=== PATIENT | female | born 1945 | race Caucasian/White ===

== ENCOUNTER 2023-01-08 09:23 | Inpatient (IN) | payer OTHER ==
[~2023-01-08] VITALS: Ht 162.6 cm; Wt 71.7 kg
[2023-01-08 09:23] VITALS: BP_SYST 99; PULSE 89; RESP 18; TEMP 97; O2SAT 97
[2023-01-08] MEDS ORDERED: NACL 0.9% 1,000 ML IV ONE ×2 (09:45→11:30)
[2023-01-08 10:14] LABS: EOSINOPHILS # (AUTO) 0.6 K/uL (0.0-0.4); HEMOGLOBIN 9.1 g/dL (12.0-16.0); LYMPHOCYTES # (AUTO) 0.7 K/uL (1.0-5.5); LYMPHOCYTES % (AUTO) 5.1 % (20.5-51.5); MEAN CORPUSCULAR HEMOGLOBIN 33 pg (27-31); MEAN CORPUSCULAR HGB CONC 33 % (32-36); MEAN CORPUSCULAR VOLUME 101 fL (79.0-98.0); MONOCYTES # (AUTO) 2.7 K/uL (0.0-1.0); MONOCYTES % (AUTO) 19.5 % (1.7-9.3); NEUTROPHILS # (AUTO) 9.9 K/uL (1.8-7.7); NEUTROPHILS % (AUTO) 71.4 % (40.0-70.0); PLATELET COUNT (AUTO) 448 K/uL (130-430); RED BLOOD CELL COUNT(AUTO) 2.77 MIL/uL (4.2-6.2); RED CELL DISTRIBUTION WIDTH 17.4 % (9.0-15.0); WHITE BLOOD COUNT (AUTO) 13.9 K/uL (4.8-10.8)
[2023-01-08 10:24] LABS: ANION GAP 12 (5-15); CALCIUM 9.1 mg/dL (8.4-11.0); CARBON DIOXIDE 24 mmol/L (23-29); CHLORIDE 101 mmol/L (98-107); CREATININE 1.31 mg/dL (0.55-1.30); GLUCOSE 199 mg/dL (74-106); POTASSIUM 3.6 mmol/L (3.5-5.1); SODIUM SERUM 137 mmol/L (136-145); UREA NITROGEN, BLOOD 16 mg/dL (8-21)
[2023-01-08 10:30] LABS: ALANINE AMINOTRANSFERASE 34 U/L (12-78); ASPARTATE AMINOTRANSFERASE 33 U/L (10-37); CREATINE KINASE, TOTAL 24 U/L (26-192); LIPASE 36 U/L (16-77); PHOSPHORUS 2.7 mg/dL (2.7-4.5); TOTAL BILIRUBIN 0.4 mg/dL (0.0-1.0); TOTAL PROTEIN, SERUM 6.2 g/dL (6.4-8.3)
[2023-01-08] MEDS ORDERED: PIPERACILLIN/TAZO 3.375 GM in NS 50 ML IV ONE (11:30)
[2023-01-08] MEDS ORDERED: VANCOMYCIN HCL 1,000 MG in NS 250 ML IV ONE (11:30)
[2023-01-08] MEDS ORDERED: LOVA20TA2 PO (12:03)
[2023-01-08] MEDS ORDERED: LOSA25TA18 PO (12:03)
[2023-01-08] MEDS ORDERED: OMEP40CA20 PO (12:03)
[2023-01-08] MEDS ORDERED: LEVO88TA5 PO (12:03)
[2023-01-08] MEDS ORDERED: FAMO40TA7 PO (12:03)
[2023-01-08] MEDS ORDERED: HYDR-3927 PO (12:03)
[2023-01-08] MEDS ORDERED: ACYC400T19 PO (12:03)
[2023-01-08] MEDS ORDERED: VANCOMYCIN HCL 1000 MG/VIAL IV ONE (12:21)
[2023-01-08] MEDS ORDERED: PIPERACILLIN/TAZOBACTAM 3.375 GM/VIAL (ZOSYN) IV ONE (12:21)
[2023-01-08] MEDS ORDERED: METHYLPREDNISOLONE SOD SUCC 40 MG/ML VIAL IVP ONE (13:30)
[2023-01-08] MEDS ORDERED: FLUCONAZOLE 200 mg/ NS 100 ML IV ONE (13:30)
[2023-01-08] MEDS ORDERED: OSELTAMIVIR PHOSPHATE 75 MG CAPSULE PO ONE (13:30)
[2023-01-08 15:50] LABS: BILIRUBIN,URINE NEGATIVE (NEGATIVE); BLOOD, URINE NEGATIVE (NEGATIVE); CLARITY/URINE CLEAR (CLEAR); COLOR,URINE YELLOW (YELLOW); GLUCOSE,URINE NEGATIVE (NEGATIVE); KETONES,URINE NEGATIVE (NEGATIVE); LEUKOCYTE ESTERASE ,URINE NEGATIVE (NEGATIVE); NITRITE, URINE NEGATIVE (NEGATIVE); PROTEIN URINE NEGATIVE (NEGATIVE); UROBILINOGEN,URINE 0.2 (0.2-1.0)
[2023-01-08 19:48] VITALS: BP_SYST 119; PULSE 76; RESP 18; TEMP 97.8; O2SAT 99
[2023-01-08] MEDS ORDERED: cefTRIAXone 1 GM in D5W 50 ML IV SCH (20:00)
[2023-01-08 20:10] LABS: INFLUENZA TYPE A Negative (NEGATIVE); INFLUENZA TYPE B NEGATIVE (NEGATIVE)
[2023-01-08] MEDS ORDERED: *LOVENOX0.75MG/KG Q12H/PHARMACY XX ONE (20:15)
[2023-01-08] MEDS ORDERED: NALOXONE HCL 0.4 MG/ML AMP (NARCAN) IVP PRN (20:15)
[2023-01-08] MEDS ORDERED: OMEPRAZOLE Non-Formulary 20 MG CAPSULE.DR PO PRN (20:15)
[2023-01-08] MEDS ORDERED: PANTOPRAZOLE SODIUM 40 MG TAB PO PRN (20:30)
[2023-01-08] MEDS ORDERED: POTASSIUM CHLORIDE 20 MEQ TAB.PRT.SR PO ONE (20:30)
[2023-01-08 21:04] LABS: BLOOD GAS PCO2 25.1 mmHg (35.0-45.0); BLOOD GAS PH 7.463 (7.350-7.450); BLOOD GAS PO2 104.2 mmHg (75.0-100.0)
[2023-01-08 21:05] LABS: BLOOD GAS BASE EXCESS -4.3 mmol/L (-3.0-3.0); BLOOD GAS HCO3 17.6 mmol/L (21.0-27.0)
[2023-01-08 21:06] LABS: ABG O2 SAT% ESTIMATE 98.1 % (94.0-100.0); ALLEN'S TEST YES (P)
[2023-01-08] MEDS: TEMAZEPAM 15 MG CAPSULE PO SCH (22:36)
[2023-01-08] MEDS: ACYCLOVIR 400 MG TABLET PO SCH (22:36)
[2023-01-08] MEDS: HYDROcodone/ACETAMIN 5-325 MG TAB (NORCO/ VICODIN) PO PRN (22:36)
[2023-01-08] MEDS: METHYLPREDNISOLONE SOD SUCC 40 MG/ML VIAL IVP SCH (22:37)
[2023-01-08] MEDS: ENOXAPARIN SODIUM 60 MG/0.6 ML SYRINGE SUBCUT SCH (22:37)
[2023-01-09] VITALS (7 sets, daily range): BP systolic 91–137; PULSE 64–87; RESP 14–18; TEMP 97.5–98.6; O2SAT 96–100
[2023-01-09] MEDS: FLUCONAZOLE 200 mg/ NS 100 ML IV SCH ×2 (00:17→09:13)
[2023-01-09] MEDS: PIPERACILLIN/TAZO 3.375/DEX-IS 50 ML IV SCH ×5 (00:19→23:56)
[2023-01-09 05:34] LABS: BASOPHILS % (AUTO) 0.1 % (0.0-2.0); HEMATOCRIT 22.7 % (36-48); HEMOGLOBIN 7.4 g/dL (12.0-16.0); LYMPHOCYTES % (AUTO) 7.9 % (20.5-51.5); MEAN CORPUSCULAR HEMOGLOBIN 33 pg (27-31); MEAN CORPUSCULAR HGB CONC 33 % (32-36); MEAN CORPUSCULAR VOLUME 100 fL (79.0-98.0); MONOCYTES # (AUTO) 0.2 K/uL (0.0-1.0); MONOCYTES % (AUTO) 1.2 % (1.7-9.3); NEUTROPHILS # (AUTO) 11.8 K/uL (1.8-7.7); NEUTROPHILS % (AUTO) 90.8 % (40.0-70.0); PLATELET COUNT (AUTO) 367 K/uL (130-430); RED BLOOD CELL COUNT(AUTO) 2.27 MIL/uL (4.2-6.2); RED CELL DISTRIBUTION WIDTH 17.6 % (9.0-15.0)
[2023-01-09 05:37] LABS: ANION GAP 11 (5-15); CALCIUM 8.2 mg/dL (8.4-11.0); CARBON DIOXIDE 23 mmol/L (23-29); CHLORIDE 105 mmol/L (98-107); CREATININE 1.03 mg/dL (0.55-1.30); GLUCOSE 158 mg/dL (74-106); POTASSIUM 4.1 mmol/L (3.5-5.1); SODIUM SERUM 139 mmol/L (136-145); UREA NITROGEN, BLOOD 14 mg/dL (8-21)
[2023-01-09] MEDS: LEVOTHYROXINE SODIUM 0.088 MG TABLET PO SCH (06:39)
[2023-01-09] MEDS ORDERED: LOVASTATIN 20 MG TABLET PO SCH (09:00)
[2023-01-09] MEDS: ACYCLOVIR 400 MG TABLET PO SCH ×2 (09:07→20:34)
[2023-01-09] MEDS: ENOXAPARIN SODIUM 60 MG/0.6 ML SYRINGE SUBCUT SCH ×2 (09:07→20:34)
[2023-01-09] MEDS: ATORVASTATIN 10 MG TABLET PO SCH (09:08)
[2023-01-09] MEDS: METHYLPREDNISOLONE SOD SUCC 40 MG/ML VIAL IVP SCH ×2 (09:08→20:33)
[2023-01-09] MEDS: FAMOTIDINE 20 MG TABLET PO SCH (09:09)
[2023-01-09] MEDS: OSELTAMIVIR PHOSPHATE 75 MG CAPSULE PO SCH (09:09)
[2023-01-09] MEDS: LOSARTAN POTASSIUM 25 MG TABLET PO SCH (09:10)
[2023-01-09] MEDS ORDERED: IPRATROPIUM/ALBUTEROL SULFATE 3 ML AMPUL.NEB (DUONEB) INH PRN (11:45)
[2023-01-09 11:51] LABS: TOTAL IRON BIND. CAPACITY 219 ug/dL (250-450)
[2023-01-09] MEDS: TEMAZEPAM 15 MG CAPSULE PO SCH (20:34)
[2023-01-09] MEDS: HYDROcodone/ACETAMIN 5-325 MG TAB (NORCO/ VICODIN) PO PRN (20:38)
[2023-01-09 20:54] LABS: HEMATOCRIT 24.3 % (36-48); HEMOGLOBIN 7.8 g/dL (12.0-16.0)
[2023-01-10 01:29] VITALS: BP_SYST 96; PULSE 79; RESP 18; TEMP 97.9
[2023-01-10] MEDS: PIPERACILLIN/TAZO 3.375/DEX-IS 50 ML IV SCH ×3 (05:21→18:35)
[2023-01-10] MEDS: LEVOTHYROXINE SODIUM 0.088 MG TABLET PO SCH (06:20)
[2023-01-10 06:58] LABS: ANION GAP 10 (5-15); CALCIUM 8.9 mg/dL (8.4-11.0); CARBON DIOXIDE 23 mmol/L (23-29); CHLORIDE 103 mmol/L (98-107); CREATININE 1.08 mg/dL (0.55-1.30); GLUCOSE 190 mg/dL (74-106); POTASSIUM 3.9 mmol/L (3.5-5.1); SODIUM SERUM 136 mmol/L (136-145); UREA NITROGEN, BLOOD 17 mg/dL (8-21)
[2023-01-10 07:24] LABS: BASOPHILS % (AUTO) 0.1 % (0.0-2.0); HEMATOCRIT 22.9 % (36-48); LYMPHOCYTES # (AUTO) 1.8 K/uL (1.0-5.5); LYMPHOCYTES % (AUTO) 9.5 % (20.5-51.5); MEAN CORPUSCULAR HEMOGLOBIN 33 pg (27-31); MEAN CORPUSCULAR HGB CONC 32 % (32-36); MEAN CORPUSCULAR VOLUME 103 fL (79.0-98.0); MONOCYTES # (AUTO) 0.4 K/uL (0.0-1.0); MONOCYTES % (AUTO) 2.2 % (1.7-9.3); NEUTROPHILS # (AUTO) 16.4 K/uL (1.8-7.7); NEUTROPHILS % (AUTO) 88.2 % (40.0-70.0); PLATELET COUNT (AUTO) 355 K/uL (130-430); RED BLOOD CELL COUNT(AUTO) 2.22 MIL/uL (4.2-6.2); RED CELL DISTRIBUTION WIDTH 17.9 % (9.0-15.0); WHITE BLOOD COUNT (AUTO) 18.6 K/uL (4.8-10.8)
[2023-01-10 07:47] LABS: HEMOGLOBIN 7.3 g/dL (12.0-16.0)
[2023-01-10 09:04] VITALS: BP_SYST 102; PULSE 68; RESP 18; TEMP 97.1; O2SAT 98
[2023-01-10] MEDS: METHYLPREDNISOLONE SOD SUCC 40 MG/ML VIAL IVP SCH ×2 (10:14→20:49)
[2023-01-10 11:26] VITALS: BP_SYST 116; PULSE 70; RESP 16; TEMP 97; O2SAT 94
[2023-01-10 11:51] LABS: BASOPHILS # (AUTO) 0.1 K/uL (0.0-0.2); BASOPHILS % (AUTO) 0.4 % (0.0-2.0); EOSINOPHILS # (AUTO) 0.1 K/uL (0.0-0.4); EOSINOPHILS % (AUTO) 0.6 % (0.0-4.0); HEMATOCRIT 24.3 % (36-48); HEMOGLOBIN 7.9 g/dL (12.0-16.0); LYMPHOCYTES # (AUTO) 1.4 K/uL (1.0-5.5); LYMPHOCYTES % (AUTO) 6.8 % (20.5-51.5); MEAN CORPUSCULAR HEMOGLOBIN 33 pg (27-31); MEAN CORPUSCULAR HGB CONC 33 % (32-36); MEAN CORPUSCULAR VOLUME 102 fL (79.0-98.0); MONOCYTES # (AUTO) 0.6 K/uL (0.0-1.0); MONOCYTES % (AUTO) 2.8 % (1.7-9.3); NEUTROPHILS % (AUTO) 89.4 % (40.0-70.0); PLATELET COUNT (AUTO) 398 K/uL (130-430); RED BLOOD CELL COUNT(AUTO) 2.39 MIL/uL (4.2-6.2); RED CELL DISTRIBUTION WIDTH 18.6 % (9.0-15.0); WHITE BLOOD COUNT (AUTO) 20.1 K/uL (4.8-10.8)
[2023-01-10] MEDS: FLUCONAZOLE 200 mg/ NS 100 ML IV SCH (12:02)
[2023-01-10] MEDS: OSELTAMIVIR PHOSPHATE 75 MG CAPSULE PO SCH (13:06)
[2023-01-10] MEDS: ATORVASTATIN 10 MG TABLET PO SCH (13:07)
[2023-01-10] MEDS: FAMOTIDINE 20 MG TABLET PO SCH (13:09)
[2023-01-10] MEDS: ENOXAPARIN SODIUM 60 MG/0.6 ML SYRINGE SUBCUT SCH ×2 (13:10→20:52)
[2023-01-10] MEDS: ACYCLOVIR 400 MG TABLET PO SCH ×2 (13:10→20:48)
[2023-01-10] MEDS ORDERED: iohexoL 350 mgI/mL, 100 ML INFUS..BTL IV ONE (14:48)
[2023-01-10 15:23] VITALS: BP_SYST 109; PULSE 79; RESP 16; TEMP 98.4; O2SAT 98
[2023-01-10] MEDS: LOSARTAN POTASSIUM 25 MG TABLET PO SCH (18:35)
[2023-01-10 20:00] VITALS: BP_SYST 115; PULSE 70; RESP 16; TEMP 97.4; O2SAT 98
[2023-01-10] MEDS: TEMAZEPAM 15 MG CAPSULE PO SCH (20:48)
[2023-01-10 23:07] VITALS: O2SAT 95
[2023-01-11] VITALS (7 sets, daily range): BP systolic 111–126; PULSE 58–92; RESP 16–20; TEMP 97–98.2; O2SAT 93–99
[2023-01-11] MEDS: PIPERACILLIN/TAZO 3.375/DEX-IS 50 ML IV SCH ×5 (01:11→23:38)
[2023-01-11] MEDS: LEVOTHYROXINE SODIUM 0.088 MG TABLET PO SCH (06:09)
[2023-01-11 06:44] LABS: ANION GAP 12 (5-15); CALCIUM 8.8 mg/dL (8.4-11.0); CARBON DIOXIDE 22 mmol/L (23-29); CHLORIDE 100 mmol/L (98-107); CREATININE 1.18 mg/dL (0.55-1.30); GLUCOSE 203 mg/dL (74-106); POTASSIUM 3.9 mmol/L (3.5-5.1); SODIUM SERUM 134 mmol/L (136-145); UREA NITROGEN, BLOOD 20 mg/dL (8-21)
[2023-01-11 08:32] LABS: BASOPHILS # (AUTO) 0.1 K/uL (0.0-0.2); BASOPHILS % (AUTO) 0.5 % (0.0-2.0); HEMATOCRIT 24.3 % (36-48); LYMPHOCYTES # (AUTO) 1.4 K/uL (1.0-5.5); MEAN CORPUSCULAR HEMOGLOBIN 33 pg (27-31); MEAN CORPUSCULAR HGB CONC 32 % (32-36); MEAN CORPUSCULAR VOLUME 103 fL (79.0-98.0); MONOCYTES # (AUTO) 0.3 K/uL (0.0-1.0); MONOCYTES % (AUTO) 1.7 % (1.7-9.3); NEUTROPHILS # (AUTO) 15.7 K/uL (1.8-7.7); NEUTROPHILS % (AUTO) 89.8 % (40.0-70.0); PLATELET COUNT (AUTO) 323 K/uL (130-430); RED BLOOD CELL COUNT(AUTO) 2.36 MIL/uL (4.2-6.2); RED CELL DISTRIBUTION WIDTH 18.9 % (9.0-15.0); WHITE BLOOD COUNT (AUTO) 17.5 K/uL (4.8-10.8)
[2023-01-11 08:34] LABS: ERYTHROCYTE SEDIMENTATION RATE 5 MM/HR (0-20); HEMOGLOBIN 7.8 g/dL (12.0-16.0)
[2023-01-11] MEDS: METHYLPREDNISOLONE SOD SUCC 40 MG/ML VIAL IVP SCH ×2 (10:00→21:52)
[2023-01-11] MEDS: ENOXAPARIN SODIUM 60 MG/0.6 ML SYRINGE SUBCUT SCH ×2 (10:01→21:01)
[2023-01-11] MEDS: OSELTAMIVIR PHOSPHATE 75 MG CAPSULE PO SCH (10:02)
[2023-01-11] MEDS: ATORVASTATIN 10 MG TABLET PO SCH (10:02)
[2023-01-11] MEDS: FAMOTIDINE 20 MG TABLET PO SCH (10:02)
[2023-01-11] MEDS: ACYCLOVIR 400 MG TABLET PO SCH ×2 (10:03→21:01)
[2023-01-11] MEDS: LOSARTAN POTASSIUM 25 MG TABLET PO SCH (10:03)
[2023-01-11] MEDS: FLUCONAZOLE 200 mg/ NS 100 ML IV SCH (10:04)
[2023-01-11] MEDS ORDERED: GASTROGRAFIN 120 ML ONE (10:22)
[2023-01-11] MEDS: TEMAZEPAM 15 MG CAPSULE PO SCH (21:01)
[2023-01-12 01:59] VITALS: BP_SYST 128; PULSE 60; RESP 19; TEMP 98.4; O2SAT 98
[2023-01-12 05:17] LABS: ERYTHROCYTE SEDIMENTATION RATE 4 MM/HR (0-20)
[2023-01-12 05:22] LABS: BASOPHILS # (AUTO) 0.1 K/uL (0.0-0.2); BASOPHILS % (AUTO) 0.4 % (0.0-2.0); EOSINOPHILS # (AUTO) 0.2 K/uL (0.0-0.4); EOSINOPHILS % (AUTO) 1.2 % (0.0-4.0); HEMATOCRIT 23.7 % (36-48); HEMOGLOBIN 7.8 g/dL (12.0-16.0); LYMPHOCYTES # (AUTO) 1.1 K/uL (1.0-5.5); LYMPHOCYTES % (AUTO) 7.8 % (20.5-51.5); MEAN CORPUSCULAR HEMOGLOBIN 34 pg (27-31); MEAN CORPUSCULAR HGB CONC 33 % (32-36); MEAN CORPUSCULAR VOLUME 102 fL (79.0-98.0); MONOCYTES # (AUTO) 0.3 K/uL (0.0-1.0); MONOCYTES % (AUTO) 2.2 % (1.7-9.3); NEUTROPHILS # (AUTO) 12.2 K/uL (1.8-7.7); NEUTROPHILS % (AUTO) 88.4 % (40.0-70.0); PLATELET COUNT (AUTO) 309 K/uL (130-430); RED BLOOD CELL COUNT(AUTO) 2.31 MIL/uL (4.2-6.2); WHITE BLOOD COUNT (AUTO) 13.8 K/uL (4.8-10.8)
[2023-01-12 05:47] LABS: ALANINE AMINOTRANSFERASE 42 U/L (12-78); ALBUMIN 2.7 g/dL (3.4-4.8); ANION GAP 12 (5-15); ASPARTATE AMINOTRANSFERASE 38 U/L (10-37); CALCIUM 8.9 mg/dL (8.4-11.0); CARBON DIOXIDE 25 mmol/L (23-29); CHLORIDE 99 mmol/L (98-107); GLUCOSE 194 mg/dL (74-106); POTASSIUM 3.1 mmol/L (3.5-5.1); SODIUM SERUM 136 mmol/L (136-145); TOTAL BILIRUBIN 0.4 mg/dL (0.0-1.0); TOTAL PROTEIN, SERUM 5.4 g/dL (6.4-8.3); UREA NITROGEN, BLOOD 24 mg/dL (8-21)
[2023-01-12] MEDS: PIPERACILLIN/TAZO 3.375/DEX-IS 50 ML IV SCH ×4 (06:03→23:45)
[2023-01-12] MEDS: LEVOTHYROXINE SODIUM 0.088 MG TABLET PO SCH (06:04)
[2023-01-12 08:00] VITALS: BP_SYST 122; PULSE 57; RESP 16; TEMP 98.2; O2SAT 98
[2023-01-12 08:01] VITALS: BP_SYST 128; PULSE 60; O2SAT 98
[2023-01-12 08:07] LABS: FOLATE (FOLIC ACID) 6.6 ng/mL (>3.0)
[2023-01-12] MEDS: METHYLPREDNISOLONE SOD SUCC 40 MG/ML VIAL IVP SCH ×2 (08:39→20:38)
[2023-01-12] MEDS: FLUCONAZOLE 200 mg/ NS 100 ML IV SCH (08:39)
[2023-01-12] MEDS ORDERED: POTASSIUM CHLORIDE 20 MEQ TAB.PRT.SR PO ONE (09:00)
[2023-01-12] MEDS: ACYCLOVIR 400 MG TABLET PO SCH ×2 (09:04→20:38)
[2023-01-12] MEDS: FAMOTIDINE 20 MG TABLET PO SCH (09:04)
[2023-01-12] MEDS: ENOXAPARIN SODIUM 60 MG/0.6 ML SYRINGE SUBCUT SCH ×2 (09:05→20:35)
[2023-01-12] MEDS: ATORVASTATIN 10 MG TABLET PO SCH (09:05)
[2023-01-12] MEDS: OSELTAMIVIR PHOSPHATE 75 MG CAPSULE PO SCH (09:15)
[2023-01-12] MEDS: LOSARTAN POTASSIUM 25 MG TABLET PO SCH (09:16)
[2023-01-12 12:00] VITALS: BP_SYST 100; PULSE 86; RESP 20; TEMP 98.6; O2SAT 100
[2023-01-12 16:00] VITALS: BP_SYST 110; PULSE 98; RESP 20; TEMP 98.2; O2SAT 97
[2023-01-12] MEDS ORDERED: BISACODYL 5 MG TABLET.DR (DULCOLAX) PO ONE (17:00)
[2023-01-12] MEDS ORDERED: GOLYTELY / COLYTE SOLUTION 4 LITERS PO ONE (18:00)
[2023-01-12 20:00] VITALS: BP_SYST 127; PULSE 78; RESP 18; TEMP 97.7; O2SAT 18; O2SAT 99
[2023-01-12] MEDS: TEMAZEPAM 15 MG CAPSULE PO SCH (20:38)
[2023-01-12] MEDS: 0.45% NACL 1,000 ML IV SCH (23:43)
[2023-01-13] VITALS: BP_SYST 135; PULSE 72; RESP 16; TEMP 97.8; O2SAT 99
[2023-01-13 05:08] LABS: BASOPHILS # (AUTO) 0.1 K/uL (0.0-0.2); BASOPHILS % (AUTO) 0.9 % (0.0-2.0); HEMATOCRIT 23.3 % (36-48); HEMOGLOBIN 7.6 g/dL (12.0-16.0); LYMPHOCYTES # (AUTO) 0.9 K/uL (1.0-5.5); LYMPHOCYTES % (AUTO) 7.6 % (20.5-51.5); MEAN CORPUSCULAR HEMOGLOBIN 33 pg (27-31); MEAN CORPUSCULAR HGB CONC 33 % (32-36); MEAN CORPUSCULAR VOLUME 102 fL (79.0-98.0); MONOCYTES # (AUTO) 0.3 K/uL (0.0-1.0); MONOCYTES % (AUTO) 2.4 % (1.7-9.3); NEUTROPHILS # (AUTO) 10.8 K/uL (1.8-7.7); NEUTROPHILS % (AUTO) 89.1 % (40.0-70.0); PLATELET COUNT (AUTO) 274 K/uL (130-430); RED BLOOD CELL COUNT(AUTO) 2.28 MIL/uL (4.2-6.2); WHITE BLOOD COUNT (AUTO) 12.1 K/uL (4.8-10.8)
[2023-01-13 05:18] LABS: PROTHROMBIN TIME 10.2 SECS (9.5-12.5)
[2023-01-13 05:21] LABS: ANION GAP 11 (5-15); CALCIUM 8.8 mg/dL (8.4-11.0); CARBON DIOXIDE 28 mmol/L (23-29); CHLORIDE 100 mmol/L (98-107); CREATININE 1.17 mg/dL (0.55-1.30); GLUCOSE 219 mg/dL (74-106); SODIUM SERUM 139 mmol/L (136-145); UREA NITROGEN, BLOOD 20 mg/dL (8-21)
[2023-01-13 05:54] LABS: POTASSIUM 2.8 mmol/L (3.5-5.1)
[2023-01-13] MEDS: LEVOTHYROXINE SODIUM 0.088 MG TABLET PO SCH (06:48)
[2023-01-13] MEDS: PIPERACILLIN/TAZO 3.375/DEX-IS 50 ML IV SCH ×3 (06:49→20:04)
[2023-01-13] MEDS ORDERED: SIMETHICONE 40 MG/0.6 ML ML ONE (07:03)
[2023-01-13] MEDS ORDERED: fentaNYL CITRATE/PF 100 MCG/2 ML AMP ONE (07:06)
[2023-01-13] MEDS ORDERED: MIDAZOLAM HCL 5 MG/5 ML VIAL ONE (07:06)
[2023-01-13] MEDS ORDERED: POTASSIUM CHLORIDE 40 MEQ in NS 250 ML IV ONE (07:30)
[2023-01-13] MEDS ORDERED: EPINEPHrine JECT 0.1 MG/ML SYR ONE (07:55)
[2023-01-13 08:06] LABS: FOLATE (FOLIC ACID) 5.3 ng/mL (>3.0)
[2023-01-13 09:30] VITALS: O2SAT 96
[2023-01-13 11:30] VITALS: BP_SYST 131; PULSE 69; RESP 15; TEMP 96.3; O2SAT 93
[2023-01-13] MEDS: METHYLPREDNISOLONE SOD SUCC 40 MG/ML VIAL IVP SCH ×2 (12:38→20:37)
[2023-01-13] MEDS: ENOXAPARIN SODIUM 60 MG/0.6 ML SYRINGE SUBCUT SCH ×2 (12:38→20:33)
[2023-01-13] MEDS: FAMOTIDINE 20 MG TABLET PO SCH (12:39)
[2023-01-13] MEDS: ATORVASTATIN 10 MG TABLET PO SCH (12:39)
[2023-01-13] MEDS: OSELTAMIVIR PHOSPHATE 75 MG CAPSULE PO SCH (12:39)
[2023-01-13] MEDS: ACYCLOVIR 400 MG TABLET PO SCH ×2 (12:39→20:37)
[2023-01-13] MEDS: LOSARTAN POTASSIUM 25 MG TABLET PO SCH (12:41)
[2023-01-13] MEDS: PANTOPRAZOLE SODIUM 40 MG in NS 50 ML IV SCH ×3 (12:53→20:39)
[2023-01-13] MEDS: FLUCONAZOLE 200 mg/ NS 100 ML IV SCH (12:54)
[2023-01-13 15:26] VITALS: BP_SYST 124; PULSE 73; RESP 16; TEMP 98.3; O2SAT 93
[2023-01-13] MEDS ORDERED: PANTOPRAZOLE SODIUM 40 MG/VIAL (PROTONIX) ONE (17:03)
[2023-01-13] MEDS: 0.45% NACL 1,000 ML IV SCH (18:00)
[2023-01-13 20:00] VITALS: BP_SYST 125; PULSE 64; RESP 18; TEMP 97.7; O2SAT 99
[2023-01-13] MEDS: TEMAZEPAM 15 MG CAPSULE PO SCH (20:33)
[2023-01-14 00:39] VITALS: BP_SYST 124; PULSE 61; RESP 15; TEMP 96.1; O2SAT 97
[2023-01-14] MEDS: PIPERACILLIN/TAZO 3.375/DEX-IS 50 ML IV SCH ×5 (01:04→23:18)
[2023-01-14] MEDS: PANTOPRAZOLE SODIUM 40 MG in NS 50 ML IV SCH ×5 (01:09→23:18)
[2023-01-14] MEDS: LEVOTHYROXINE SODIUM 0.088 MG TABLET PO SCH (06:22)
[2023-01-14 07:46] LABS: BASOPHILS % (AUTO) 0.4 % (0.0-2.0); LYMPHOCYTES # (AUTO) 0.7 K/uL (1.0-5.5); LYMPHOCYTES % (AUTO) 7.7 % (20.5-51.5); MEAN CORPUSCULAR HEMOGLOBIN 34 pg (27-31); MEAN CORPUSCULAR HGB CONC 33 % (32-36); MEAN CORPUSCULAR VOLUME 104 fL (79.0-98.0); MONOCYTES # (AUTO) 0.2 K/uL (0.0-1.0); MONOCYTES % (AUTO) 2.4 % (1.7-9.3); NEUTROPHILS % (AUTO) 89.5 % (40.0-70.0); PLATELET COUNT (AUTO) 203 K/uL (130-430); RED CELL DISTRIBUTION WIDTH 19.6 % (9.0-15.0)
[2023-01-14 07:56] LABS: RED BLOOD CELL COUNT(AUTO) 1.83 MIL/uL (4.2-6.2)
[2023-01-14 07:57] LABS: HEMOGLOBIN 6.3 g/dL (12.0-16.0)
[2023-01-14 08:00] VITALS: BP_SYST 114; PULSE 69; RESP 17; TEMP 96.8; O2SAT 98
[2023-01-14 08:11] LABS: ANION GAP 10 (5-15); CARBON DIOXIDE 25 mmol/L (23-29); CHLORIDE 102 mmol/L (98-107); GLUCOSE 241 mg/dL (74-106); SODIUM SERUM 137 mmol/L (136-145); UREA NITROGEN, BLOOD 16 mg/dL (8-21)
[2023-01-14] MEDS: ENOXAPARIN SODIUM 60 MG/0.6 ML SYRINGE SUBCUT SCH ×2 (09:00→21:00)
[2023-01-14] MEDS: ACYCLOVIR 400 MG TABLET PO SCH ×2 (09:50→21:23)
[2023-01-14] MEDS: FLUCONAZOLE 200 mg/ NS 100 ML IV SCH (09:50)
[2023-01-14] MEDS: METHYLPREDNISOLONE SOD SUCC 40 MG/ML VIAL IVP SCH (09:50)
[2023-01-14] MEDS: ATORVASTATIN 10 MG TABLET PO SCH (09:51)
[2023-01-14] MEDS: FAMOTIDINE 20 MG TABLET PO SCH (09:51)
[2023-01-14] MEDS: LOSARTAN POTASSIUM 25 MG TABLET PO SCH (09:52)
[2023-01-14] MEDS ORDERED: POTASSIUM CHLORIDE 20 MEQ TAB.PRT.SR PO ONE (10:15)
[2023-01-14] MEDS ORDERED: MILK OF MAGNESIA 30 ML UDC PO PRN (10:15)
[2023-01-14 12:05] VITALS: BP_SYST 120; PULSE 65; RESP 16; TEMP 96.5; O2SAT 97
[2023-01-14] MEDS: 0.45% NACL 1,000 ML IV SCH (14:00)
[2023-01-14 16:07] VITALS: BP_SYST 118; PULSE 68; RESP 17; TEMP 97; O2SAT 97
[2023-01-14 20:03] VITALS: BP_SYST 145; PULSE 99; RESP 21; TEMP 97.2; O2SAT 99
[2023-01-14] MEDS ORDERED: METHYLPREDNISOLONE SOD SUCC 40 MG/ML VIAL IVP SCH (21:00)
[2023-01-14] MEDS: TEMAZEPAM 15 MG CAPSULE PO SCH (21:23)
[2023-01-14 21:34] VITALS: O2SAT 100
[2023-01-15] VITALS: BP_SYST 146; PULSE 59; RESP 18; TEMP 97.2; O2SAT 97
[2023-01-15 01:44] LABS: EOSINOPHILS % (AUTO) 0.1 % (0.0-4.0); HEMOGLOBIN 9.8 g/dL (12.0-16.0); LYMPHOCYTES # (AUTO) 0.7 K/uL (1.0-5.5); RED CELL DISTRIBUTION WIDTH 20.9 % (9.0-15.0)
[2023-01-15 02:04] LABS: BASOPHILS # (AUTO) 0.1 K/uL (0.0-0.2); BASOPHILS % (AUTO) 0.3 % (0.0-2.0); HEMATOCRIT 28.7 % (36-48); LYMPHOCYTES % (AUTO) 4.3 % (20.5-51.5); MEAN CORPUSCULAR HEMOGLOBIN 32 pg (27-31); MEAN CORPUSCULAR HGB CONC 34 % (32-36); MEAN CORPUSCULAR VOLUME 94 fL (79.0-98.0); MONOCYTES # (AUTO) 0.7 K/uL (0.0-1.0); MONOCYTES % (AUTO) 3.8 % (1.7-9.3); NEUTROPHILS # (AUTO) 15.6 K/uL (1.8-7.7); NEUTROPHILS % (AUTO) 91.5 % (40.0-70.0); PLATELET COUNT (AUTO) 156 K/uL (130-430); RED BLOOD CELL COUNT(AUTO) 3.05 MIL/uL (4.2-6.2); WHITE BLOOD COUNT (AUTO) 17.1 K/uL (4.8-10.8)
[2023-01-15] MEDS: PIPERACILLIN/TAZO 3.375/DEX-IS 50 ML IV SCH ×2 (05:14→13:00)
[2023-01-15] MEDS: LEVOTHYROXINE SODIUM 0.088 MG TABLET PO SCH (06:06)
[2023-01-15 06:12] LABS: BASOPHILS % (AUTO) 0.3 % (0.0-2.0); EOSINOPHILS # (AUTO) 0.1 K/uL (0.0-0.4); EOSINOPHILS % (AUTO) 0.5 % (0.0-4.0); HEMATOCRIT 28.6 % (36-48); HEMOGLOBIN 9.4 g/dL (12.0-16.0); LYMPHOCYTES # (AUTO) 0.7 K/uL (1.0-5.5); LYMPHOCYTES % (AUTO) 5.2 % (20.5-51.5); MEAN CORPUSCULAR HEMOGLOBIN 31 pg (27-31); MEAN CORPUSCULAR HGB CONC 33 % (32-36); MEAN CORPUSCULAR VOLUME 93 fL (79.0-98.0); MONOCYTES # (AUTO) 0.4 K/uL (0.0-1.0); PLATELET COUNT (AUTO) 160 K/uL (130-430); RED BLOOD CELL COUNT(AUTO) 3.07 MIL/uL (4.2-6.2); RED CELL DISTRIBUTION WIDTH 20.4 % (9.0-15.0); WHITE BLOOD COUNT (AUTO) 14.3 K/uL (4.8-10.8)
[2023-01-15 06:29] LABS: ALANINE AMINOTRANSFERASE 109 U/L (12-78); ALBUMIN 2.4 g/dL (3.4-4.8); ANION GAP 10 (5-15); ASPARTATE AMINOTRANSFERASE 84 U/L (10-37); CALCIUM 8.1 mg/dL (8.4-11.0); CARBON DIOXIDE 26 mmol/L (23-29); CHLORIDE 105 mmol/L (98-107); CREATININE 1.22 mg/dL (0.55-1.30); GLUCOSE 263 mg/dL (74-106); POTASSIUM 3.3 mmol/L (3.5-5.1); SODIUM SERUM 141 mmol/L (136-145); TOTAL BILIRUBIN 0.7 mg/dL (0.0-1.0); TOTAL PROTEIN, SERUM 4.7 g/dL (6.4-8.3); UREA NITROGEN, BLOOD 18 mg/dL (8-21)
[2023-01-15] MEDS: PANTOPRAZOLE SODIUM 40 MG in NS 50 ML IV SCH ×3 (06:50)
[2023-01-15 08:00] VITALS: BP_SYST 126; PULSE 67; RESP 18; TEMP 98.1; O2SAT 98
[2023-01-15] MEDS ORDERED: DOCUSATE SODIUM 100 MG CAPSULE PO SCH (09:00)
[2023-01-15] MEDS ORDERED: PANTOPRAZOLE SODIUM 40 MG/VIAL (PROTONIX) IVP SCH (09:00)
[2023-01-15] MEDS ORDERED: PANT40TA45 PO (09:22)
[2023-01-15] MEDS ORDERED: AMOX-423 PO (09:22)
[2023-01-15] MEDS ORDERED: PRED10TA PO (09:22)
[2023-01-15] MEDS ORDERED: POTASSIUM CHLORIDE 20 MEQ TAB.PRT.SR PO ONE (09:45)
[2023-01-15] MEDS: 0.45% NACL 1,000 ML IV SCH (10:00)
[2023-01-15] MEDS: ATORVASTATIN 10 MG TABLET PO SCH (10:48)
[2023-01-15] MEDS: LOSARTAN POTASSIUM 25 MG TABLET PO SCH (10:50)
[2023-01-15 11:39] VITALS: BP_SYST 119; PULSE 93; RESP 17; TEMP 97.8; O2SAT 99
[2023-01-15 15:20] VITALS: BP_SYST 106; PULSE 90; TEMP 98; O2SAT 99
[2023-01-16] MEDS ORDERED: predniSONE 10 MG TABLET PO SCH (09:00)
== END 2023-01-15 16:35 | disposition home or self-care (01) | DRG 380 ==
LOC: SED 09:23 → STU 12:26 → SMU 01-09 11:50
PROVIDERS: ADMIT Specialist; ATTEND Specialist
PROC: 0DB78ZX Excision of Stomach, Pylorus, Via Natural or Artificial Opening Endoscopic, Diagnostic (ICD-10-PCS; principal; 2023-01-13 09:30)
PROC: 0DBK8ZZ Excision of Ascending Colon, Via Natural or Artificial Opening Endoscopic (ICD-10-PCS; 2023-01-13 09:30)
PROC: 0DBL8ZZ Excision of Transverse Colon, Via Natural or Artificial Opening Endoscopic (ICD-10-PCS; 2023-01-13 09:30)
PROC: 3E0H8GC Introduction of Other Therapeutic Substance into Lower GI, Via Natural or Artificial Opening Endoscopic (ICD-10-PCS; 2023-01-13 09:30)
PROC: 0W3P8ZZ Control Bleeding in Gastrointestinal Tract, Via Natural or Artificial Opening Endoscopic (ICD-10-PCS; 2023-01-13 09:30)
PROC: 30233N1 Transfusion of Nonautologous Red Blood Cells into Peripheral Vein, Percutaneous Approach (ICD-10-PCS; 2023-01-14)
DX: K22.11 Ulcer of esophagus with bleeding (principal); J18.9 Pneumonia, unspecified organism; E87.1 Hypo-osmolality and hyponatremia; J44.0 Chronic obstructive pulmonary disease with (acute) lower respiratory infection; J44.1 Chronic obstructive pulmonary disease with (acute) exacerbation; K63.5 Polyp of colon; K64.4 Residual hemorrhoidal skin tags; D64.9 Anemia, unspecified; I10 Essential (primary) hypertension; D72.829 Elevated white blood cell count, unspecified; U09.9 Post COVID-19 condition, unspecified; D69.6 Thrombocytopenia, unspecified; E66.9 Obesity, unspecified; Z20.822 Contact with and (suspected) exposure to COVID-19; F17.210 Nicotine dependence, cigarettes, uncomplicated; E78.5 Hyperlipidemia, unspecified; Z88.2 Allergy status to sulfonamides; Z79.899 Other long term (current) drug therapy; Z98.84 Bariatric surgery status; Z98.82 Breast implant status; Z87.01 Personal history of pneumonia (recurrent); Z68.27 Body mass index [BMI] 27.0-27.9, adult
CPT/HCPCS: 36415; 36600; 43239; 43255; 45381; 45382; 45384; 45385; 71045; 71275; 74250-TC; 76376; 80048; 80053; 81001; 81003; 82550; 82607; 82746; 82803; 83010; 83540; 83550; 83605; 83615; 83690; 83735; 83880; 84100; 84484; 85018; 85025; 85379; 85610-TC; 85651-TC; 86886; 86900; 86901; 86920; 87040; 88305; 88312; 88313; 93005; 97110-GP; 97116-GP; 97530-GP; 99291; C9113; G0378; G9035; J0171; J0696; J1030; J1450; J1650; J1956; J2250; J2543; J3010; J3370; J3480; J7050; J7060; P9021; Q9963; Q9967

== ENCOUNTER 2023-01-28 17:00 | Inpatient (IN) | payer OTHER ==
[~2023-01-28] VITALS: Ht 157.5 cm; Wt 61.2 kg
[~2023-01-28 17:00] MED LIST: ACYC400T19 PO; AMOX-423 PO; LEVO88TA5 PO; LOSA25TA18 PO; LOVA20TA2 PO; PANT40TA45 PO; PRED10TA PO
[2023-01-28 17:05] VITALS: BP_SYST 108; PULSE 132; RESP 20; TEMP 98.9; O2SAT 99
[2023-01-28 18:28] LABS: BASOPHILS # (AUTO) 0.1 K/uL (0.0-0.2); BASOPHILS % (AUTO) 0.7 % (0.0-2.0); EOSINOPHILS # (AUTO) 0.1 K/uL (0.0-0.4); EOSINOPHILS % (AUTO) 0.7 % (0.0-4.0); LYMPHOCYTES % (AUTO) 11.8 % (20.5-51.5); MEAN CORPUSCULAR HEMOGLOBIN 33 pg (27-31); MEAN CORPUSCULAR HGB CONC 33 % (32-36); MEAN CORPUSCULAR VOLUME 100 fL (79.0-98.0); MONOCYTES # (AUTO) 0.4 K/uL (0.0-1.0); MONOCYTES % (AUTO) 4.8 % (1.7-9.3); NEUTROPHILS # (AUTO) 6.8 K/uL (1.8-7.7); PLATELET COUNT (AUTO) 175 K/uL (130-430); RED BLOOD CELL COUNT(AUTO) 3.01 MIL/uL (4.2-6.2); RED CELL DISTRIBUTION WIDTH 23.1 % (9.0-15.0); WHITE BLOOD COUNT (AUTO) 8.3 K/uL (4.8-10.8)
[2023-01-28 18:40] LABS: ANION GAP 7 (5-15); CALCIUM 8.7 mg/dL (8.4-11.0); CARBON DIOXIDE 24 mmol/L (23-29); CHLORIDE 103 mmol/L (98-107); GLUCOSE 108 mg/dL (74-106); POTASSIUM 3.2 mmol/L (3.5-5.1); SODIUM SERUM 134 mmol/L (136-145); UREA NITROGEN, BLOOD 23 mg/dL (8-21)
[2023-01-28] MEDS ORDERED: PIPERACILLIN/TAZO 3.375 GM in NS 50 ML IV ONE (18:45)
[2023-01-28 19:38] LABS: ANISOCYTOSIS 2+; OVALOCYTES FEW
[2023-01-28] MEDS ORDERED: PIPERACILLIN/TAZOBACTAM 3.375 GM/VIAL (ZOSYN) IV ONE (19:42)
[2023-01-28] MEDS ORDERED: NACL 0.9% 1,000 ML IV ONE ×2 (21:00→21:15)
[2023-01-28] MEDS ORDERED: POTASSIUM CHLORIDE 20 MEQ TABLET.ER PO ONE (21:15)
[2023-01-28] MEDS ORDERED: ACETAMINOPHEN 325 MG TABLET PO PRN (21:15)
[2023-01-28] MEDS ORDERED: HYDROcodone/ACETAMIN 10-325 MG TAB PO PRN (21:15)
[2023-01-28] MEDS ORDERED: ONDANSETRON HCL 4 MG/2 ML VIAL IVP PRN (21:15)
[2023-01-28] MEDS ORDERED: HYDROcodone/ACETAMIN 5-325 MG TAB (NORCO/ VICODIN) PO PRN (21:15)
[2023-01-28] MEDS ORDERED: MORPHINE 2 MG/ML INJ. SYRINGE IVP PRN (21:15)
[2023-01-28 21:25] LABS: BILIRUBIN,URINE NEGATIVE (NEGATIVE); BLOOD, URINE NEGATIVE (NEGATIVE); COLOR,URINE YELLOW (YELLOW); GLUCOSE,URINE NEGATIVE (NEGATIVE); KETONES,URINE TRACE (NEGATIVE); LEUKOCYTE ESTERASE ,URINE NEGATIVE (NEGATIVE); NITRITE, URINE POSITIVE (NEGATIVE); PROTEIN URINE NEGATIVE (NEGATIVE); UROBILINOGEN,URINE 0.2 (0.2-1.0)
[2023-01-28 21:57] LABS: CLARITY/URINE SLIGHTLY CLOUDY (CLEAR)
[2023-01-28 21:59] LABS: BACTERIA,URINE MANY /HPF (None Seen); CALCIUM OXALATE CRYSTALS,UR 30-50 /HPF (None Seen); RBC,URINE 0-3 /HPF (0-3)
[2023-01-28 22:00] LABS: MUCUS,URINE None Seen /LPF (None Seen)
[2023-01-29] MEDS ORDERED: PIPERACILLIN/TAZOBACTAM 3.375 GM/VIAL (ZOSYN) IV ONE ×2 (02:50→06:11)
[2023-01-29] MEDS ORDERED: ZOLPIDEM TARTRATE 5 MG TABLET ONE (02:51)
[2023-01-29] MEDS: DOXYCYCLINE HYCLATE 100 MG CAPSULE PO SCH ×3 (02:55→20:32)
[2023-01-29] MEDS: PIPERACILLIN/TAZO 3.375/DEX-IS 50 ML IV SCH ×5 (02:56→23:40)
[2023-01-29] MEDS ORDERED: ZOLPIDEM TARTRATE 5 MG TABLET PO ONE (03:00)
[2023-01-29] MEDS: LEVOTHYROXINE SODIUM 0.088 MG TABLET PO SCH (08:06)
[2023-01-29] MEDS: LOSARTAN POTASSIUM 25 MG TABLET PO SCH (09:00)
[2023-01-29 09:03] VITALS: BP_SYST 111; PULSE 90; RESP 20; TEMP 97.6; O2SAT 100
[2023-01-29 09:10] VITALS: O2SAT 93
[2023-01-29 09:23] LABS: BASOPHILS # (AUTO) 0.1 K/uL (0.0-0.2); BASOPHILS % (AUTO) 0.9 % (0.0-2.0); EOSINOPHILS # (AUTO) 0.2 K/uL (0.0-0.4); EOSINOPHILS % (AUTO) 2.9 % (0.0-4.0); HEMATOCRIT 27.8 % (36-48); HEMOGLOBIN 9.1 g/dL (12.0-16.0); LYMPHOCYTES # (AUTO) 1.3 K/uL (1.0-5.5); LYMPHOCYTES % (AUTO) 21.3 % (20.5-51.5); MEAN CORPUSCULAR HEMOGLOBIN 33 pg (27-31); MEAN CORPUSCULAR HGB CONC 33 % (32-36); MEAN CORPUSCULAR VOLUME 100 fL (79.0-98.0); MONOCYTES # (AUTO) 0.2 K/uL (0.0-1.0); MONOCYTES % (AUTO) 2.8 % (1.7-9.3); NEUTROPHILS # (AUTO) 4.4 K/uL (1.8-7.7); NEUTROPHILS % (AUTO) 72.1 % (40.0-70.0); PLATELET COUNT (AUTO) 160 K/uL (130-430); RED BLOOD CELL COUNT(AUTO) 2.79 MIL/uL (4.2-6.2); WHITE BLOOD COUNT (AUTO) 6.1 K/uL (4.8-10.8)
[2023-01-29 09:44] LABS: ALANINE AMINOTRANSFERASE 39 U/L (12-78); ALBUMIN 2.5 g/dL (3.4-4.8); ANION GAP 12 (5-15); ASPARTATE AMINOTRANSFERASE 11 U/L (10-37); CALCIUM 8.4 mg/dL (8.4-11.0); CARBON DIOXIDE 23 mmol/L (23-29); CHLORIDE 109 mmol/L (98-107); CREATININE 1.11 mg/dL (0.55-1.30); GLUCOSE 126 mg/dL (74-106); POTASSIUM 3.4 mmol/L (3.5-5.1); SODIUM SERUM 144 mmol/L (136-145); TOTAL BILIRUBIN 0.5 mg/dL (0.0-1.0); UREA NITROGEN, BLOOD 16 mg/dL (8-21)
[2023-01-29 12:30] VITALS: BP_SYST 105; PULSE 91; RESP 18; TEMP 97.6
[2023-01-29] MEDS ORDERED: LOVASTATIN 20 MG TABLET PO SCH (14:45)
[2023-01-29] MEDS ORDERED: DOXYCYCLINE HYCLATE 100 MG CAPSULE PO SCH (15:00)
[2023-01-29] MEDS ORDERED: ATORVASTATIN 10 MG TABLET PO ONE (15:00)
[2023-01-29] MEDS ORDERED: HYDROcodone/ACETAMIN 5-325 MG TAB (NORCO/ VICODIN) PO PRN (15:15)
[2023-01-29 16:51] VITALS: BP_SYST 119; PULSE 77; RESP 20; TEMP 99.1; O2SAT 95
[2023-01-29 19:35] VITALS: BP_SYST 122; PULSE 75; RESP 18; TEMP 98.8; O2SAT 100
[2023-01-29 20:00] VITALS: BP_SYST 118; BP_SYST 122; PULSE 75; PULSE 87
[2023-01-30] VITALS: BP_SYST 112; PULSE 82; RESP 18; TEMP 98.2; O2SAT 100
[2023-01-30] MEDS: PIPERACILLIN/TAZO 3.375/DEX-IS 50 ML IV SCH ×3 (05:30→18:00)
[2023-01-30] MEDS: LEVOTHYROXINE SODIUM 0.088 MG TABLET PO SCH (06:00)
[2023-01-30 06:03] LABS: BASOPHILS # (AUTO) 0.1 K/uL (0.0-0.2); BASOPHILS % (AUTO) 1.1 % (0.0-2.0); EOSINOPHILS # (AUTO) 0.3 K/uL (0.0-0.4); EOSINOPHILS % (AUTO) 5.5 % (0.0-4.0); HEMATOCRIT 29.1 % (36-48); HEMOGLOBIN 9.6 g/dL (12.0-16.0); LYMPHOCYTES # (AUTO) 1.8 K/uL (1.0-5.5); LYMPHOCYTES % (AUTO) 31.2 % (20.5-51.5); MEAN CORPUSCULAR HEMOGLOBIN 33 pg (27-31); MEAN CORPUSCULAR HGB CONC 33 % (32-36); MEAN CORPUSCULAR VOLUME 100 fL (79.0-98.0); MONOCYTES # (AUTO) 0.3 K/uL (0.0-1.0); NEUTROPHILS # (AUTO) 3.2 K/uL (1.8-7.7); NEUTROPHILS % (AUTO) 56.2 % (40.0-70.0); PLATELET COUNT (AUTO) 187 K/uL (130-430); RED BLOOD CELL COUNT(AUTO) 2.91 MIL/uL (4.2-6.2); RED CELL DISTRIBUTION WIDTH 23.3 % (9.0-15.0); WHITE BLOOD COUNT (AUTO) 5.7 K/uL (4.8-10.8)
[2023-01-30 06:36] LABS: ALANINE AMINOTRANSFERASE 37 U/L (12-78); ALBUMIN 2.5 g/dL (3.4-4.8); ANION GAP 11 (5-15); ASPARTATE AMINOTRANSFERASE 13 U/L (10-37); CALCIUM 8.8 mg/dL (8.4-11.0); CARBON DIOXIDE 24 mmol/L (23-29); CHLORIDE 107 mmol/L (98-107); CREATININE 1.12 mg/dL (0.55-1.30); GLUCOSE 86 mg/dL (74-106); POTASSIUM 3.7 mmol/L (3.5-5.1); SODIUM SERUM 142 mmol/L (136-145); TOTAL BILIRUBIN 0.6 mg/dL (0.0-1.0); UREA NITROGEN, BLOOD 12 mg/dL (8-21)
[2023-01-30 08:00] VITALS: BP_SYST 119; PULSE 68; RESP 16; TEMP 97.7; O2SAT 96; O2SAT 97
[2023-01-30] MEDS ORDERED: ATORVASTATIN 10 MG TABLET PO SCH (09:00)
[2023-01-30] MEDS: DOXYCYCLINE HYCLATE 100 MG CAPSULE PO SCH (10:09)
[2023-01-30] MEDS: LOSARTAN POTASSIUM 25 MG TABLET PO SCH (10:10)
[2023-01-30] MEDS ORDERED: LEVO250T73 PO (14:51)
[2023-01-30 16:00] VITALS: BP_SYST 90; PULSE 97; RESP 18; TEMP 97; O2SAT 99
[2023-01-30 18:35] VITALS: BP_SYST 114; PULSE 92; RESP 18; TEMP 97; O2SAT 99
[2023-01-31 07:07] LABS: FOLATE (FOLIC ACID) 9.2 ng/mL (>3.0)
== END 2023-01-30 19:54 | disposition home health service (06) | DRG 640 ==
LOC: SED 17:00 → STU 21:12
PROVIDERS: ADMIT Family Medicine; ATTEND Family Medicine
PROC: 4A00X4Z Measurement of Central Nervous Electrical Activity, External Approach (ICD-10-PCS; principal; 2023-01-30)
DX: E86.0 Dehydration (principal); E43 Unspecified severe protein-calorie malnutrition; J18.9 Pneumonia, unspecified organism; N39.0 Urinary tract infection, site not specified; E87.1 Hypo-osmolality and hyponatremia; E78.5 Hyperlipidemia, unspecified; D64.9 Anemia, unspecified; E87.6 Hypokalemia; D50.9 Iron deficiency anemia, unspecified; E03.9 Hypothyroidism, unspecified; I10 Essential (primary) hypertension; Z87.01 Personal history of pneumonia (recurrent); Z86.16 Personal history of COVID-19; Z88.2 Allergy status to sulfonamides; Z79.899 Other long term (current) drug therapy; Z68.24 Body mass index [BMI] 24.0-24.9, adult
CPT/HCPCS: 36415; 70450-TC; 70551; 71045; 76376; 80048; 80053; 81000; 81001; 81015; 82607; 82746; 83605; 83880; 84484; 85025; 87040; 87081; 87086; 93005; 93306; 93880; 95816; 96365; 97112-GP; 97116-GP; 97530-GP; 99291; G0378; J2270; J2405; J2543